=== PATIENT | male | born 1955 | race Caucasian/White ===

== ENCOUNTER 2019-05-02 10:27 | Day surgery (SDC) | payer MEDICARE, BC ==
[~2019-05-02 10:27] MED LIST: Bupivacaine 0.5%/EPINEPHrine 1:200,000 30 ML SDV ONE; Lactated Ringers 1,000 ML IV SCH
[2019-05-02] MEDS ORDERED: Propofol 200 MG/20 ML SDV ONE (11:35)
[2019-05-02] MEDS ORDERED: Midazolam 1 MG/ML 2 ML SDV ONE (11:35)
[2019-05-02] MEDS ORDERED: fentaNYL 100 MCG/2 ML SDV ONE (11:35)
[2019-05-02] MEDS ORDERED: Ketamine 200 MG/20 ML MDV ONE (11:35)
[2019-05-02] MEDS ORDERED: Rocuronium 50 MG/5 ML Vial ONE (11:49)
[2019-05-02] MEDS ORDERED: Succinylcholine 200 MG/10 ML MDV ONE (11:49)
[2019-05-02] MEDS ORDERED: ceFAZolin 1 GM Vial ONE (12:00)
[2019-05-02] MEDS ORDERED: Bupivacaine 0.5%/EPINEPHrine 1:200,000 30 ML SDV INFILT ONE ×2 (12:05)
[2019-05-02] MEDS ORDERED: Acetaminophen 500 MG Tab PO PRN (13:02)
[2019-05-02] MEDS ORDERED: Ketorolac 30 MG/ML SDV IM ONE (13:02)
[2019-05-02] MEDS ORDERED: Promethazine Topical Gel 0.5 ML Syringe TOP PRN (13:05)
[2019-05-02] MEDS ORDERED: Acetaminophen/HYDROcodone 325-10 MG Tab PO PRN (14:31)
[2019-05-02] MEDS ORDERED: Acetaminophen/HYDROcodone 325-5 MG Tab PO ONE (14:31)
[2019-05-02] MEDS ORDERED: Midazolam 1 MG/ML 2 ML SDV IVPUSH PRN (14:52)
--- NOTE | 2019-05-02 21:39 | OR ---
PREOPERATIVE DIAGNOSIS: Umbilical hernia. POSTOPERATIVE DIAGNOSIS: Umbilical hernia. PROCEDURE PERFORMED: Repair of umbilical hernia with 4.3 cm Ventralex patch. INDICATION: The patient is a 63-year-old male with history of umbilical hernia, presents for repair. COMPLICATIONS: None. SPECIMENS: None. ESTIMATED BLOOD LOSS: 5 mL. ANESTHESIA: General. PROCEDURE IN DETAIL: This was done in the operating room. General anesthetic was administered. The abdomen was prepped in a sterile manner. A 15 blade was used to make a supraumbilical incision following the curve of the umbilicus. Cautery was used to go through the subcutaneous tissue and down to the fascia. Hernia sac was dissected free from the surrounding skin and from the subcutaneous tissue correctly at the fascial level with cautery. The preperitoneal space was dissected for several centimeters in each direction. The 4.3 cm Ventralex patch was placed posterior to the fascia. The 2 taps were sutured, 1 superiorly and 1 inferiorly with 0 Nurolon U-stitches. The tabs were removed. Fascia was reapproximated over the mesh with 0 Nurolon interrupted sutures. Umbilical skin was closed with 3-0 Vicryl interrupted sutures. Skin was closed with running 4-0 Vicryl subcuticular suture and Dermabond. The patient was brought to PACU postoperatively and will be sent home later today. DEBORAHD: 05/02/2019 12:39:22 MODL: 05/02/2019 18:51:24 /[id number]
== END 2019-05-02 15:40 | disposition home or self-care (01) ==
LOC: VM.SDS 10:27
PROVIDERS: ATTEND Surgery
DX: K42.9 Umbilical hernia without obstruction or gangrene (principal); I10 Essential (primary) hypertension; E78.5 Hyperlipidemia, unspecified; Z98.890 Other specified postprocedural states; Z87.19 Personal history of other diseases of the digestive system; Z87.891 Personal history of nicotine dependence; Z79.899 Other long term (current) drug therapy
CPT/HCPCS: 00750; 82962; A9270-GY; C1781; J0690; J1885; J2250; J2704; J3010; J3490; J7120

== ENCOUNTER 2019-05-16 08:34 | Day surgery (SDC) | payer MEDICARE, BC ==
[~2019-05-16 08:34] MED LIST changes: -Bupivacaine 0.5%/EPINEPHrine 1:200,000 30 ML SDV ONE
[2019-05-16] MEDS ORDERED: Propofol 200 MG/20 ML SDV ONE ×3 (10:31→11:42)
[2019-05-16] MEDS ORDERED: fentaNYL 100 MCG/2 ML SDV ONE (10:31)
--- NOTE | 2019-05-16 12:38 | OR ---
PREOPERATIVE DIAGNOSIS: Screening colonoscopy. POSTOPERATIVE DIAGNOSIS: Screening colonoscopy. PROCEDURE PERFORMED: Screening colonoscopy. INDICATION: The patient is a 63-year-old male who presents for screening colonoscopy at this time. PROCEDURE IN DETAIL: This was done in the endoscopy suite. Sedation was given per Anesthesia. He was placed in left lateral position. First, a rectal exam was done and was normal. Scope was introduced into the rectum and advanced to the rectum, sigmoid, descending, transverse, and ascending colon until the cecum was reached. Upon reaching the cecum, scope was slowly withdrawn looking at all mucosal surfaces on the way out. No mucosal abnormalities, lesions, or polyps were noted except at the cecum where a small 1 cm polyp was found, removed by hot loop forceps, and then sent to pathology. The remainder of the exam was normal. FINAL DIAGNOSIS: Cecal polyp, pathology pending. BKD: 05/16/2019 12:00:45 MODL: 05/16/2019 12:32:19 /[id number]
== END 2019-05-16 12:56 | disposition home or self-care (01) ==
LOC: VM.SDS 08:34
PROVIDERS: ATTEND Surgery
DX: Z12.11 Encounter for screening for malignant neoplasm of colon (principal); D12.0 Benign neoplasm of cecum; K21.9 Gastro-esophageal reflux disease without esophagitis; I10 Essential (primary) hypertension; E78.5 Hyperlipidemia, unspecified; E11.9 Type 2 diabetes mellitus without complications; F17.220 Nicotine dependence, chewing tobacco, uncomplicated; Z98.890 Other specified postprocedural states; Z79.899 Other long term (current) drug therapy; Z79.84 Long term (current) use of oral hypoglycemic drugs
CPT/HCPCS: 00812; 45384; 82962; J2704; J3010; J7120

== ENCOUNTER → 2024-11-14 | Day surgery (SDC) | payer MEDICARE, BC ==
[~2024-11-14] MED LIST changes: -Lactated Ringers 1,000 ML IV SCH; +Propofol 200 MG/20 ML SDV ONE; +fentaNYL 100 MCG/2 ML SDV ONE
[2024-11-14] MEDS: Lactated Ringers 1,000 ML IV SCH (10:31)
== END ==
LOC: VM.SDS 10:11
PROVIDERS: ATTEND Surgery
DX: Z12.11 Encounter for screening for malignant neoplasm of colon (principal); I10 Essential (primary) hypertension; E11.9 Type 2 diabetes mellitus without complications; E78.5 Hyperlipidemia, unspecified; Z79.84 Long term (current) use of oral hypoglycemic drugs; Z79.899 Other long term (current) drug therapy; Z86.0100 Personal history of colon polyps, unspecified
CPT/HCPCS: 82947; G0121; J2704; J3010; J7120; 00811; 99100